=== PATIENT | male | born 1985 | race Caucasian/White ===

== ENCOUNTER → 2018-02-13 | Outpatient (REF) | payer BC ==
[~2018-02-13] MED LIST: CEPH-13 PO; DIA5 PO; EPIN0.3P15 IM; GABA-490 PO
== END ==
LOC: ZZSENDIN 15:24
PROVIDERS: ATTEND Internal Medicine Rheumatology
DX: M10.9 Gout, unspecified (principal)
CPT/HCPCS: 84550

== ENCOUNTER 2018-12-19 22:38 | Emergency (ER) | payer BC ==
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
[2018-12-19 23:39] VITALS: BP 117/80
== END 2018-12-19 23:41 | disposition home or self-care (01) ==
LOC: ER 22:49
DX: S01.112A Laceration without foreign body of left eyelid and periocular area, initial encounter (principal); W22.8XXA Striking against or struck by other objects, initial encounter
CPT/HCPCS: 99282

== ENCOUNTER → 2019-04-27 | Outpatient (RCR) | payer OTHER, BC ==
[2018-01-19] MEDS: HEPARIN SOD (PORCINE) UNIT/HR IVP PRN (15:09)
[2018-01-19] MEDS: HEPARIN SOD (PORCINE) LOAD IVP PRN (15:09)
[2018-01-19] MEDS: DARBEPOETIN ESRD 25 MCG/ML IVP PRN (15:34)
[2018-01-22] MEDS: HEPARIN SOD (PORCINE) LOAD IVP PRN (15:07)
[2018-01-22] MEDS: HEPARIN SOD (PORCINE) UNIT/HR IVP PRN (15:07)
[2018-01-24] MEDS: HEPARIN SOD (PORCINE) UNIT/HR IVP PRN (15:08)
[2018-01-24] MEDS: HEPARIN SOD (PORCINE) LOAD IVP PRN (15:08)
[2018-01-24 16:54] LABS: PLATELET COUNT, AUTOMATED 272 K/uL (150-450)
[2018-01-26] MEDS: HEPARIN SOD (PORCINE) UNIT/HR IVP PRN (14:58)
[2018-01-26] MEDS: HEPARIN SOD (PORCINE) LOAD IVP PRN (14:58)
[2018-01-26] MEDS: DARBEPOETIN ESRD 25 MCG/ML IVP PRN (16:28)
[2018-01-29] MEDS: HEPARIN SOD (PORCINE) LOAD IVP PRN (14:55)
[2018-01-29] MEDS: HEPARIN SOD (PORCINE) UNIT/HR IVP PRN (14:56)
[2018-01-31] MEDS: HEPARIN SOD (PORCINE) LOAD IVP PRN (14:54)
[2018-01-31] MEDS: HEPARIN SOD (PORCINE) UNIT/HR IVP PRN (14:54)
[2018-02-07 09:08] LABS: PLATELET COUNT, AUTOMATED 247 K/uL (150-450)
[2018-02-13 10:50] LABS: PLATELET COUNT, AUTOMATED 238 K/uL (150-450)
[~2019-04-27] MED LIST changes: +ALTEPLASE RECOMB 2 MG VIAL IVP PRN; +DARBEPOETIN ESRD 100 MCG/0.5ML SYR IVP PRN; +DEXTROSE 50% 50 ML SYR IVP PRN; +DIALYSIS ACETAMINOPHEN 325 MG PO PRN; +HEPARIN SOD IVP PRN; +LOPERAMIDE HCL 2 MG CAP PO PRN; +PROMETHAZINE HCL 25 MG TAB PO PRN; +WATER FOR INJ,STERILE 20 ML IVP PRN; +diphenhydr DIALYSIS 50 MG/ML IVP PRN
== END ==
LOC: DIAL 01-19 15:11
PROVIDERS: ATTEND Internal Medicine Nephrology
DX: N17.9 Acute kidney failure, unspecified (principal); N17.0 Acute kidney failure with tubular necrosis; M62.82 Rhabdomyolysis; Z99.2 Dependence on renal dialysis; R60.1 Generalized edema; R26.89 Other abnormalities of gait and mobility; R34 Anuria and oliguria; W57.XXXA Bitten or stung by nonvenomous insect and other nonvenomous arthropods, initial encounter; I10 Essential (primary) hypertension; R39.89 Other symptoms and signs involving the genitourinary system; E87.6 Hypokalemia; E87.70 Fluid overload, unspecified; T38.0X5A Adverse effect of glucocorticoids and synthetic analogues, initial encounter
CPT/HCPCS: 82040; 82247; 82310; 82374; 82565; 82570; 82947; 84075; 84100; 84132; 84295; 84460; 84520; 84540; 85018; 85025; 90999; 99211; A4657; J0882; 82435